=== PATIENT | male | born 1950 | race Caucasian/White ===

== ENCOUNTER 2016-05-31 03:09 | Emergency (ER) | payer OTHER ==
[2016-05-31 03:19] VITALS: RESP 16
[2016-05-31] MEDS ORDERED: ONDANSETRON 4 MG/2 ML VIAL ONE (03:28)
[2016-05-31] MEDS ORDERED: HYDROmorphONE/DILAUDID 1 MG/ML SYR ONE (03:28)
--- NOTE | 2016-05-31 03:37 | EDPHY ---
H & P Stated Complaint: R flank p[ain HPI/ROS: HPI CHIEF COMPLAINT: Right flank pain since midnight with vomiting HISTORY OF PRESENT ILLNESS: this patient very pleasant 66-year-old male, significant past medical history for hypertension, hyperlipidemia, presents to the emergency room at 3:30 a.m. in the morning with onset of right flank pain at midnight. Patient tells me that it is a dull ache at times short stabbing and at times radiates to his right lower quadrant, no testicular pain no urinary symptoms. Tells me it was relentless since midnight. 02/14. He has associated nausea vomiting multiple episodes nonbilious nonbloody vomiting. Denies fever, denies chest pain or shortness of breath. no history of kidney stone. Past Medical History: Hypertension, hyperlipidemia Past Surgical History: no significant surgical history Social History: Denies use of drugs alcohol tobacco products Family History: noncontributory ROS REVIEW OF SYSTEMS: A comprehensive 10 point review of systems is otherwise negative aside from elements mentioned in the history of present illness. Exam Constitutional triage nursing summary reviewed, vital signs reviewed, awake/ alert. Eyes normal conjunctivae and sclera, EOMI, PERRLA. HENT normal inspection, atraumatic, moist mucus membranes, no epistaxis, neck supple/ no meningismus, no raccoon eyes. Respiratory clear to auscultation bilaterally, normal breath sounds, no respiratory distress, no wheezing. Cardiovascular rate normal, regular rhythm, no murmur, no edema, distal pulses normal. Gastrointestinal soft, non-tender, no rebound, no guarding, normal bowel sounds, no distension, no pulsatile mass. Genitourinary to palpation over the right CVA region, abdomen is benign Musculoskeletal no midline vertebral tenderness, full range of motion, no calf swelling, no tenderness of extremities, no meningismus, good pulses, neurovascularly intact. Skin pink, warm, & dry, no rash, skin atraumatic. Neurologic awake, alert and oriented x 3, AAOx3, moves all 4 extremities equally, motor intact, sensory intact, CN II-XII intact, normal cerebellar, normal vision, normal speech. Psychiatric normal mood/affect. Heme/Lymph/Immune no lymphadenopathy. Differential diagnosis includes but is not limited to and in no particular order : Kidney stone, hydroureter, hydronephrosis, UTI, pyelonephritis Bowel obstruction, appendicitis, gallbladder disease, diverticulitis, colitis, enteritis, perforated viscus, gastritis, GERD, esophagitis, Medical Decision Making: this patient had an IV established obtain blood work, patient be medicated with IV Dilaudid for pain control IV Zofran for nausea, IV fluids 1 L normal saline, we will test urine sample here a CT abdomen pelvis without IV contrast for kidney stone evaluation. We will re-evaluate after pain medicine. Re-evaluation: CT scan of the Abdomen pelvis without IV contrast The results of the study are this shows a 13 x 9 mm x 6 mm right proximal kidney ureter stone there is significant hydronephrosis and there is urine extravasation outside of the kidney. The study was read by Dr. White I viewed the images myself on the PACS system. [id number]: I did discuss this case with Coleen Lopez, in Urology his request is patient be transferred to a [facility] where he will see and evaluate the patient. I do think this is appropriate plan given that there are no current hospital beds here. The patient is requiring ongoing nausea medicine and pain medicine. He has a very large kidney stone 13 x 9 x 6 mm right proximal ureter. I will touch base with the [facility] to get this person transfer accepted by hospital service for urology to see. [id number]: Patient has been accepted by Dr. Gusman, the hospitalist at [place]. Plan is to admit to medical surgical bed as he is hemodynamically stable. Plan is for Dr. Sahu with Urology to see and evaluate for this large kidney stone with severe hydronephrosis and perinephric stranding of the right kidney. It is noted is patient is afebrile, nontoxic appearing, pain is well control, vomiting controlled at this time, abdomen is soft, creatinine is normal. Source: Patient - Personal History Current Tetanus/Diphtheria Vaccine: Yes Current Tetanus Diphtheria and Acellular Pertussis (TDAP): Yes - Medical/Surgical History Hx Asthma: No Hx Chronic Respiratory Disease: No Hx Diabetes: No Hx Cardiac Disease: No Hx Renal Disease: No Hx Cirrhosis: No Hx Alcoholism: No Hx HIV/AIDS: No Hx Splenectomy or Spleen Trauma: No Other PMH: HTN, hypothyroid, hyperlipidemia, BPH, - Social History Smoking Status: Never smoked Constitutional: Initial Vital Signs Temperature (C) 36.6 C 05/31/16 03:16 Heart Rate 51 L 05/31/16 03:16 Respiratory Rate 16 05/31/16 03:16 Blood Pressure 176/90 H 05/31/16 03:16 O2 Sat (%) 93 05/31/16 03:16 O2 Delivery Mode Room Air O2 (L/minute) 2 Allergies/Adverse Reactions: No Known Allergies Allergy (Unverified 05/31/16 03:15) Home Medications: Medication Instructions Recorded Atorvastatin Calcium 05/31/16 Finasteride 05/31/16 Levothyroxine 05/31/16 Lisinopril 05/31/16 Medical Decision Making - Data Points Laboratory Results: Laboratory Results 05/31/16 03:40 05/31/16 03:40 05/31/16 05/31/16 04:30 03:40 WBC 11.98 H 10^3/uL (3.80-9.50) RBC 5.13 10^6/uL (4.40-6.38) Hgb 16.8 g/dL (13.7-17.5) Hct 49.4 % (40.0-51.0) MCV 96.3 fL (81.5-99.8) MCH 32.7 pg (27.9-34.1) MCHC 34.0 g/dL (32.4-36.7) RDW 12.7 % (11.5-15.2) Plt Count 221 10^3/uL (150-400) MPV 10.1 fL (8.7-11.7) Neut % (Auto) 73.7 % (39.3-74.2) Lymph % (Auto) 16.9 % (15.0-45.0) Holt % (Auto) 7.6 % (4.5-13.0) Eos % (Auto) 0.7 % (0.6-7.6) Baso % (Auto) 0.8 % (0.3-1.7) Nucleat RBC Rel Count 0.0 % (0.0-0.2) Absolute Neuts (auto) 8.83 H 10^3/uL (1.70-6.50) Absolute Lymphs (auto) 2.03 10^3/uL (1.00-3.00) Absolute Monos (auto) 0.91 H 10^3/uL (0.30-0.80) Absolute Eos (auto) 0.08 10^3/uL (0.03-0.40) Absolute Basos (auto) 0.09 10^3/uL (0.02-0.10) Absolute Nucleated RBC 0.00 10^3/uL (0-0.01) Immature Gran % 0.3 % (0.0-1.1) Immature Gran # 0.04 10^3/uL (0.00-0.10) PT 13.1 SEC (12.0-15.0) INR 1.00 (0.83-1.16) APTT 24.8 SEC (23.0-38.0) Sodium 142 mEq/L (134-144) Potassium 3.9 mEq/L (3.5-5.2) Chloride 100 mEq/L (97-110) Carbon Dioxide 28 mEq/l (22-31) Anion Gap 14 mEq/L (8-16) BUN 14 mg/dL (7-23) Creatinine 0.9 mg/dL (0.7-1.3) Estimated GFR > 60 Glucose 133 H mg/dL (70-100) Calcium 9.5 mg/dL (8.5-10.4) Total Bilirubin 0.6 mg/dL (0.1-1.4) Conjugated Bilirubin 0.2 mg/dL (0.0-0.5) Unconjugated Bilirubin 0.4 mg/dL (0.0-1.1) AST 32 IU/L (17-59) ALT 42 IU/L (21-72) Alkaline Phosphatase 81 IU/L (38-126) Total Protein 7.2 g/dL (6.3-8.2) Albumin 4.2 g/dL (3.5-5.0) Lipase 160.0 IU/L (23-300) Urine Color YELLOW Urine Appearance HAZY Urine pH 6.0 (5.0-7.5) Ur Specific [place] 1.014 (1.002-1.030) Urine Protein NEGATIVE (NEGATIVE) Urine Ketones NEGATIVE (NEGATIVE) Urine Blood 3+ H (NEGATIVE) Urine Nitrate NEGATIVE (NEGATIVE) Urine Bilirubin NEGATIVE (NEGATIVE) Urine Urobilinogen NEGATIVE EU (0.2-1.0) Ur Leukocyte Esterase NEGATIVE (NEGATIVE) Urine RBC Pending Urine WBC Pending Ur Epithelial Cells Pending Ur Culture Indicated? Pending Urine Glucose NEGATIVE (NEGATIVE) Medications Given: Discontinued Medications Hydromorphone HCl (Dilaudid) 0 mg IVP EDNOW ONE Stop: 05/31/16 03:49 Last Admin: 05/31/16 03:35 Dose: 0.5 mg Sodium Chloride (Ns) 1,000 mls @ 0 mls/hr IV ONCE ONE PRN Reason: Wide Open Stop: 05/31/16 03:46 Last Admin: 05/31/16 03:48 Dose: 1,000 mls Morphine Sulfate (Morphine) 4 mg IVP EDNOW ONE Stop: 05/31/16 04:04 Last Admin: 05/31/16 04:09 Dose: 4 mg Ondansetron HCl (Zofran) 4 mg IVP EDNOW ONE Stop: 05/31/16 03:46 Last Admin: 05/31/16 03:47 Dose: 4 mg Promethazine HCl (Phenergan Injection) 6.25 mg IVP ONCE ONE Stop: 05/31/16 04:04 Last Admin: 05/31/16 04:09 Dose: 6.25 mg Departure - Departure Disposition: Acute Care Hospital [facility] Clinical Impression: Urinary tract obstruction due to kidney stone Condition: Fair
[2016-05-31] MEDS ORDERED: NS 1,000 ML IV ONE (03:45)
[2016-05-31] MEDS ORDERED: ONDANSETRON 4 MG/2 ML VIAL IVP ONE (03:45)
[2016-05-31] MEDS ORDERED: HYDROmorphONE/DILAUDID 1 MG/ML SYR IVP ONE (03:48)
[2016-05-31 03:58] LABS: % IMMATURE GRANULYOCYTES 0.3 % (0.0-1.1); ABSOLUTE IMMATURE GRANULOCYTES 0.04 10^3/uL (0.00-0.10); ADD DIFF? NO; ADD MORPH? NO; ADD SCAN? NO; ATYPICAL LYMPHOCYTE FLAG 0 (0-99); FRAGMENT RBC FLAG 0 (0-99); HEMATOCRIT 49.4 % (40.0-51.0); HEMOGLOBIN 16.8 g/dL (13.7-17.5); LEFT SHIFT FLG 0 (0-99); LIPEMIA HEMOLYSIS FLAG 90 (0-99); MEAN CELL HEMOGLOBIN 32.7 pg (27.9-34.1); MEAN CELL VOLUME 96.3 fL (81.5-99.8); MEAN PLATELET VOLUME 10.1 fL (8.7-11.7); PLATELET CLUMPS FLAG 10 (0-99); PLATELET COUNT 221 10^3/uL (150-400); RED BLOOD CELL COUNT 5.13 10^6/uL (4.40-6.38); RED CELL DISTRIBUTION WIDTH 12.7 % (11.5-15.2)
[2016-05-31] MEDS ORDERED: PROMETHAZINE HCL 25 MG/ML INJ ONE (04:02)
[2016-05-31] MEDS ORDERED: PROMETHAZINE HCL 25 MG/ML INJ IVP ONE (04:03)
[2016-05-31 04:06] LABS: PROTIME(PATIENT) 13.1 SEC (12.0-15.0)
[2016-05-31 04:07] LABS: APTT 24.8 SEC (23.0-38.0)
[2016-05-31 04:14] LABS: ALANINE AMINOTRANSFERASE 42 IU/L (21-72); ALBUMIN 4.2 g/dL (3.5-5.0); ALKALINE PHOSPHATASE 81 IU/L (38-126); ANION GAP 14 mEq/L (8-16); ASPARTATE AMINOTRANSFERASE 32 IU/L (17-59); BILIRUBIN,TOTAL 0.6 mg/dL (0.1-1.4); BILIRUBIN-CONJUGATED 0.2 mg/dL (0.0-0.5); BILIRUBIN-UNCONJUGATED 0.4 mg/dL (0.0-1.1); CALCIUM 9.5 mg/dL (8.5-10.4); CARBON DIOXIDE 28 mEq/l (22-31); CHLORIDE 100 mEq/L (97-110); CREATININE 0.9 mg/dL (0.7-1.3); GLOMERULAR FILTRATION RATE > 60; GLUCOSE 133 mg/dL (70-100); POTASSIUM 3.9 mEq/L (3.5-5.2); SODIUM 142 mEq/L (134-144); TOTAL PROTEIN 7.2 g/dL (6.3-8.2)
[2016-05-31 04:38] LABS: COLOR YELLOW; LEUKOCYTE ESTERASE,URINE NEGATIVE (NEGATIVE); NITRITE,URINE NEGATIVE (NEGATIVE)
[2016-05-31 04:51] LABS: MUCUS TRACE /lpf (NONE-1+); RBC,URINE 50-182 /hpf (0-3)
[2016-05-31 06:11] VITALS: BP 147/81; PULSE 51; TEMP 98.6; O2SAT 95
--- NOTE | 2016-05-31 07:06 | CT ---
CT Abdomen and Pelvis Without Contrast (Stone Protocol) History: Right-sided flank pain. No history of previous kidney stones. Technique: Ultrathin ultrafast helical CT through the abdomen and pelvis without contrast. Dose reduction techniques were utilized. Comparison: None. Findings: There is a large obstructive proximal right ureteral stone measuring 13 x 9 x 6 mm. There is mild right hydronephrosis and moderate right hydropelvis. There is extravasated urine and edema around the right kidney. There is a mid lateral right renal cyst measuring approximately 2.6 cm. No other stones are seen in the right kidney or left kidney. No stones are seen in the distal ureter or in the urinary bladder. The prostate gland is moderately enlarged and indents the urinary bladder base. Impression: Large proximal right ureteral stone, unlikely to pass. Results discussed with Dr. Mckinley at 4:15 a.m. Final results are concordant with the initial interpretation. Attention: This CT examination is specifically designed to evaluate patients who are clinically suspected of having acute obstructive uropathy. This examination does not use radiographic contrast, and as such, provides only a limited evaluation of the abdomen, pelvis and retroperitoneum. If there is further clinical suspicion for pathological conditions other than obstructive uropathy, a complete CT evaluation of the abdomen and pelvis utilizing intravenous, oral, and rectal contrast should be considered. General information for patients regarding this examination can be found at [email or web address]. If you have questions or comments about this report, please contact me at (hospital) or [phone] (cell). [id number] [id number]
== END 2016-05-31 06:10 | disposition short-term general hospital (02) ==
DX: N20.0 Calculus of kidney (principal); N13.9 Obstructive and reflux uropathy, unspecified; I10 Essential (primary) hypertension
CPT/HCPCS: 74176; 96361; 96374; 96375; 99285; J1170; J2405; J2550